=== PATIENT | male | born 1990 | race Two or more races ===

== ENCOUNTER 2021-05-01 08:15 | Emergency (ER) | payer SELFPAY ==
[~2021-05-01] VITALS: Ht 177.8 cm; Wt 86.2 kg
[2021-05-01] MEDS ORDERED: cloNIDine HCL 0.1 MG TAB PO ONE (08:30)
[2021-05-01 09:32] LABS: Basophils # (auto) 0 10 ^3/uL (0-0.2); Basophils % (auto) 0.9 % (0.0-2.0); Eosinophils # (auto) 0 10 ^3/uL (0-0.8); Hematocrit 44.2 % (41.0-53.0); Hemoglobin 15.6 g/dL (13.5-17.5); Lymphocytes # (auto) 1.3 10 ^3/uL (0.4-5.4); Mean Corpuscular Hemoglobin 32.1 pg (28.0-32.0); Mean Corpuscular Hgb Conc. 35.2 g/dL (32.0-36.0); Mean Corpuscular Volume 91.2 fL (80.0-100.0); Monocytes # (auto) 0.4 10 ^3/uL (0-1.3); Monocytes % (auto) 10.2 % (0.0-12.0); Neutrophils # (auto) 2.4 10 ^3/uL (1.6-8.6); Neutrophils % (auto) 56.9 % (37.0-80.0); Nucleated Red Blood Cells % 0.1 %; Red Blood Cells 4.85 10^6/uL (4.5-5.90); Red Cell Distribution Width 12.4 % (11.8-14.3); White Blood Cell 4.3 10^3/uL (4.4-10.8)
[2021-05-01 09:51] LABS: Alanine Aminotransferase 53 U/L (16-61); Albumin 4.1 g/dL (3.4-5.0); Anion Gap 6 (5-15); Blood Urea Nitrogen 10 mg/dL (7-18); Calcium 8.9 mg/dL (8.5-10.1); Carbon Dioxide 25 mmol/L (21-32); Chloride 104 mmol/L (98-107); Glucose 83 mg/dL (74-106); Potassium 3.8 mmol/L (3.5-5.1); Sodium 135 mmol/L (136-145)
[2021-05-01 09:56] LABS: Alkaline Phosphatase 82 U/L (45-117); Aspartate Aminotransferase 31 U/L (15-37); BUN/Creatinine Ratio 9.9; Bilirubin, Total 0.5 mg/dL (0.2-1.0); GFR African American 110 mL/min; GFR Non-African American 91 mL/min; Total Protein 8.2 g/dL (6.4-8.2)
[2021-05-01 10:06] VITALS: BP 133/91
== END 2021-05-01 10:09 | disposition home or self-care (01) ==
LOC: ER 08:15
DX: R07.89 Other chest pain (principal); I16.0 Hypertensive urgency; F17.210 Nicotine dependence, cigarettes, uncomplicated
CPT/HCPCS: 36415; 71046; 80053; 84484; 85025; 93005